=== PATIENT | female | born 2000 | race African-American/Black ===

== ENCOUNTER 2021-12-06 14:06 | Emergency (ER) | payer MEDICAID, OTHER ==
[~2021-12-06] VITALS: Ht 157.5 cm; Wt 81.0 kg
[2021-12-06 17:22] VITALS: BP 116/84
== END 2021-12-06 17:24 | disposition home or self-care (01) ==
LOC: ER 14:28
DX: U07.1 COVID-19 (principal); Z88.0 Allergy status to penicillin
CPT/HCPCS: 87426; 99283